=== PATIENT | male | born 1965 | race Caucasian/White ===

== ENCOUNTER 2021-03-13 17:00 | Emergency (ER) | payer SELFPAY ==
[~2021-03-13] VITALS: Ht 167.6 cm; Wt 88.5 kg
[2021-03-13 17:06] VITALS: BP 147/107
--- NOTE | 2021-03-13 17:10 | NUR ---
PT TO ER BED 1 WITH A STEADY GAIT.
--- NOTE | 2021-03-13 17:11 | NUR ---
55 Y/O MALE C/O SOB X1WEEK AGO, WENT TO [place] AND WAS TOLD HE WAS COVID +. PT STATES HE WAS DISCHARGED AND BEGAN TO FEEL SOB, DENIES FEVER/CHILLS, DENIES N/V. SPO2 CURRENTLY 99% ON RA. DENIES PMH NKA
--- NOTE | 2021-03-13 17:48 | NUR ---
Dr. Figueroa at pt bedside for further evaluation.
[2021-03-13] MEDS ORDERED: chlorproMAZINE 25 MG TAB PO SCH (17:55)
[2021-03-13 18:49] VITALS: BP 147/107
--- NOTE | 2021-03-13 18:50 | NUR ---
Patient discharged with v/s stable. Written and verbal after care instructions given and explained. Patient verbalized understanding. Ambulatory with steady gait. All questions addressed prior to discharge. Advised to follow up with PMD.
[2021-03-14] MEDS ORDERED: THO25 PO (17:53)
== END 2021-03-13 18:49 | disposition home or self-care (01) ==
LOC: MED 17:00
DX: R06.6 Hiccough (principal); R06.02 Shortness of breath; R05 Cough
CPT/HCPCS: 99281

== ENCOUNTER 2021-03-14 16:02 | Emergency (ER) | payer SELFPAY ==
[~2021-03-14] VITALS: Ht 167.6 cm; Wt 92.1 kg
[2021-03-14 16:08] VITALS: BP 134/74
--- NOTE | 2021-03-14 16:12 | NUR ---
Patient ambulated to bed 8. RN evaluating the patient at bedside.
--- NOTE | 2021-03-14 16:15 | NUR ---
55/M PRESENTS TO ER WITH C/O PERSISTENT HICCUPS FOR THE LAST 4 DAYS. PATIENT STATES HE WAS SEEN HERE YESTERDAY AND WAS DISCHARGED WITHOUT ANY MEDICATIONS PER PATIENT. NO SIGNS OF RESPIRATORY DISTRESS. DENIES PAIN, DENIES NAUSEA/VOMITING.
--- NOTE | 2021-03-14 16:27 | NUR ---
Dr. Figueroa is evaluating the patient at bedside.
[2021-03-14] MEDS ORDERED: chlorproMAZINE 25 MG TAB PO SCH (16:30)
--- NOTE | 2021-03-14 16:34 | NUR ---
X-Ray at bedside.
--- NOTE | 2021-03-14 16:40 | NUR ---
Lab at bedside
--- NOTE | 2021-03-14 17:05 | NUR ---
RIYA SWAB COLLECTED AND SENT TO LAB
[2021-03-14 17:06] LABS: BASOPHILS # (AUTO) 0.1 K/uL (0.00-0.22); BASOPHILS % (AUTO) 0.6 % (0.0-2.0); EOSINOPHILS # (AUTO) 0.1 K/uL (0-0.4); EOSINOPHILS % (AUTO) 0.6 % (0.0-4.0); HEMOGLOBIN 14.6 g/dL (12.0-18.0); LYMPHOCYTES % (AUTO) 14.7 % (20.5-51.1); MEAN CORPUSCULAR HEMOGLOBIN 30 pg (27-31); MEAN CORPUSCULAR HGB CONC 34 g/dL (33-37); MEAN CORPUSCULAR VOLUME 88.2 fL (80-94); MONOCYTES % (AUTO) 7.1 % (1.7-9.3); NEUTROPHILS # (AUTO) 10.4 K/uL (1.8-7.7); PLATELET COUNT (AUTO) 382 K/uL (140-450); RED BLOOD CELL COUNT(AUTO) 4.87 MIL/uL (4.20-6.10); RED CELL DISTRIBUTION WIDTH 14.4 % (11.6-13.7); WHITE BLOOD COUNT (AUTO) 13.5 K/uL (4.8-10.8)
[2021-03-14 17:28] LABS: ANION GAP 12.7 (8-16); CARBON DIOXIDE 25.5 mmol/L (21-32); CREATININE 1.2 mg/dL (0.6-1.3); POTASSIUM 3.2 mmol/L (3.5-5.1); TOTAL BILIRUBIN 0.6 mg/dL (0.0-1.0)
[2021-03-14] MEDS ORDERED: THO25 PO (17:53)
--- NOTE | 2021-03-14 18:02 | NUR ---
Patient discharged with v/s stable. Written and verbal after care instructions given and explained. Patient alert, oriented and verbalized understanding of instructions. Ambulatory with steady gait. All questions addressed prior to discharge. ID band removed. Patient advised to follow up with PMD. Rx of Chlorpromazine Hydrochloride given. Patient educated on indication of medication including possible reaction and side effects. Opportunity to ask questions provided and answered.
[2021-03-14 18:03] VITALS: BP 134/74
== END 2021-03-14 18:02 | disposition home or self-care (01) ==
LOC: MED 16:02
DX: R06.6 Hiccough (principal); Z20.822 Contact with and (suspected) exposure to COVID-19
CPT/HCPCS: 36415; 71045; 80053; 84484; 85025; 93005; 99285